=== PATIENT | male | born 1970 ===

== ENCOUNTER 2021-04-25 07:47 | Day surgery (SDC) | payer BC ==
[~2021-04-25] VITALS: Ht 185.4 cm; Wt 92.8 kg
[2021-04-25 08:21] VITALS: BP 104/85; PULSE 87; TEMP 97.7
[2021-04-25 09:55] VITALS: BP 124/60; PULSE 74; TEMP 98
--- NOTE | 2021-04-25 09:55 | NUR ---
Pt returned from procedure via cart escorted by [place],RN pt ambulates to chair with SBA X1 without difficulties, VSS, pt is A&O, offered food and fluids, states "I will take a coffee, black and a blueberry muffin" reviewed POC, verbalzied understanding, call light within reach, denies any further needs at this time.
[2021-04-25 10:10] VITALS: BP 115/86; PULSE 75
[2021-04-25 10:20] VITALS: BP 119/66; PULSE 75
--- NOTE | 2021-04-25 10:20 | NUR ---
Pt discharged, reviewed instructions, verbalized understanding denies any needs, left via W/C escorted by staff
== END 2021-04-25 10:20 | disposition home or self-care (01) ==
LOC: SDCO 07:47
DX: Z12.11 Encounter for screening for malignant neoplasm of colon (principal); K57.30 Diverticulosis of large intestine without perforation or abscess without bleeding; E78.5 Hyperlipidemia, unspecified; Z80.0 Family history of malignant neoplasm of digestive organs
CPT/HCPCS: J2704; J7030